=== PATIENT | male | born 1990 | race Asian ===

== ENCOUNTER 2016-06-20 16:13 | Emergency (ER) | payer BC ==
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
== END 2016-06-20 18:23 | disposition home or self-care (01) ==
LOC: ED 16:13
DX: S86.011A Strain of right Achilles tendon, initial encounter (principal); W51.XXXA Accidental striking against or bumped into by another person, initial encounter; Y92.9 Unspecified place or not applicable

== ENCOUNTER 2016-06-30 14:42 | Day surgery (SDC) | payer BC ==
[~2016-06-30 14:42] MED LIST: CEFAZOLIN SODIUM 2 GRAM DUPLEX 50 ML IV PRN
[2016-06-30] MEDS ORDERED: IV START KIT ONE (14:45)
[2016-06-30] MEDS ORDERED: LACTATED RINGERS 1,000 ML ONE (14:45)
[2016-06-30] MEDS ORDERED: CEFAZOLIN SODIUM 2 GRAM PREMIX 100 ML IV ONE (14:46)
[2016-06-30] MEDS ORDERED: NERVE BLOCK PROCEDURAL TRAY 1 EACH ONE (15:26)
[2016-06-30] MEDS ORDERED: ROPIVACAINE 0.5% 30 ML VIAL ONE (15:26)
[2016-06-30] MEDS ORDERED: MIDAZOLAM HCL 5 MG/5 ML VIAL ONE (15:32)
[2016-06-30] MEDS ORDERED: FENTANYL 100 MCG/2 ML VIAL ONE (15:32)
--- NOTE | 2016-06-30 15:57 | HP ---
DATE OF CLINIC: 06/28/16 CLOVIS LOCKE : 1990 PLANNED PROCEDURE: Right Achilles Tendon Repair DATE OF SURGERY: June 30, 2016 SURGEON: Magnus Flores M.D. HISTORY OF PRESENT ILLNESS Clovis Locke is a 26 year old male. * Medication list reviewed with patient allergy list reviewed with patient. * Tried NSAIDS * Has not tried Physical Therapy * Has not tried Injections The patient is a 26 yr old male who sustained a right ankle achilles tear on 06.20.2016. The patient has had an MRI of the right ankle and would like to review with me his options. He lives in [place] where he works but his family is here in the [place] area. His mother is an ICU nurse at [employer]. He has some pain but is more concerned about his function in the future. He would like to discuss the pros and cons of non-op and surgical treatment for his right achilles rupture. The patient is planning on having surgery on Tue in [place]. The patient is in a walking boot with a heel raise. PMH: L5-S1 disectomy CURRENT MEDICATION * Ibuprofen 400 MG Tablet as directed 0 days, 0 refills * tylenol unk Tablet as directed 0 days, 0 refills PAST MEDICAL/SURGICAL HISTORY Reported: Medical: No reported medical history or no significant history. Surgical: * Orthopedic surgery lumbar surgery SOCIAL HISTORY Behavioral: Daily coffee consumption seldom, mayby once a month. No tobacco use. Alcohol: Alcohol use socially. Drug Use: Not using drugs. ALLERGIES * Fish Shellfish FAMILY HISTORY Hypertension REVIEW OF SYSTEMS Systemic: No fever and no recent weight change. Cardiovascular: No chest pain or discomfort and no palpitations. Pulmonary: No cough and no wheezing. Gastrointestinal: No nausea, no vomiting, no abdominal pain, and no diarrhea. Hematologic: No easy bleeding (no blood clots). Neurological: No motor disturbances and no sensory disturbances. Skin: No skin lesions and no rash. PHYSICAL FINDINGS * Vitals taken 06/28/2016 01:48 pm BP-Sitting R 128/78 mmHg 100 - 120/60 - 80 BP Cuff Size Regular Pulse Rate-Sitting 89 bpm 50 - 100 Pulse Rhythm Regular Temp-Oral 97.8 F 96 - 101 Height 67 in 65 - 75 Pain Level 4 General Appearance: * Well developed. * In no acute distress. Eyes: General/bilateral: Extraocular Movements: * Normal. Lungs: * Clear to auscultation. * No wheezing was heard. * No rales/crackles were heard. Cardiovascular: Heart Rate And Rhythm: * Heart rate was normal. * Heart rhythm regular. Abdomen: Palpation: * Abdominal non-tender. Neurological: * Oriented to time, place, and person. Motor: * Dominant Hand = Right Hand. PHYSICAL FINDINGS RIGHT EXTREMITY Ankle/Foot General Appearance: The patient has some mild swelling and dependent bruising of the right ankle and a gross defect posteriorly in his right achilles tendon. The patient has good peroneal strength. The patient has a POSITIVE Sandoval's test (knee flexed and patient is prone and squeezing the calf does not produce plantarflexion) Neurologic: Gross sensation to light touch was present in the distribution of DP/SP/MP/LP/saph/sural nerves Vascular: 1+ DP pulse, capillary refill less then 2 seconds is present Motor: 5 out of 5 strength quad, EHL, TA, GA, peroneals, normal toe flexion toe extension Range of Motion: AROM: Plantarflexion to dorsiflexion: 5 degrees to 0 degrees PROM: Eversion to inversion: 10 degrees to 10 degrees PHYSICAL FINDINGS LEFT EXTREMITY Ankle/Foot General Appearance: The patient has no swelling and no abnormalities. The patient has a Negative Sandoval's test (knee flexed and patient is prone and squeezing the calf does produce plantarflexion) Neurologic: Gross sensation to light touch was present in the distribution of DP/SP/MP/LP/saph/sural nerves Vascular: 1+ DP pulse, capillary refill less then 2 seconds is present Motor: 5 out of 5 strength quad, EHL, TA, GA, peroneals, normal toe flexion toe extension Range of Motion: AROM: Plantarflexion to dorsiflexion: 20 degrees to 5 degrees PROM: Eversion to inversion: 10 degrees to 10 degrees PREVIOUS TESTS * Test: CBC WITH DIFF Report Date: 06/24/2016 WBC 5.6 10*3/mL MCV 90.7 fL BASOPHIL 0.5 % RBC 5.05 10*6/uL NEUTROPHILS 48.8 % MCH 29.9 pg MCHC 33.0 g/dL RDW 12.0 % PLATELET COUNT 344 10*3/mL IMM NEUT % 0.4 % IMM NEUT # 0.0 10*3/mL MONOCYTES 7.5 % EOSINOPHIL 1.8 % HCT 45.8 % HGB 15.1 g/L LYMPHOCYTE 41.0 % ANC 2.7 10*3/mL * Test: BASIC METABOLIC PROFILE Report Date: 06/24/2016 BUN 16 mg/dL BUN/CREAT RATIO 20 CALCIUM 9.6 mg/dL GLUCOSE 87 mg/dL CREATININE 0.8 mg/dL SODIUM 140 meq/L POTASSIUM 4.4 meq/L CHLORIDE 102 meq/L CARBON DIOXIDE 31 meq/L ANION GAP 11 meq/L GFR 117 High IMAGING 06.20.2016--right ankle xrays are negative for any fracture, dislocation or any bony abnormalities. 06.21.2016--right ankle MRI shows a full thickness achilles tendon tear. There are some anterior fibers but over 95% of the tendon is torn. I reviewed the MRI with Dr. Ryan and do not appreciate a P. brevis tear. ASSESSMENT Magnus Flores MD made the following assessments * Rupture of the Achilles tendon -right PLAN * OTHER OxyCODONE HCl 5 MG TABS, as directed: one to two tabs by mouth every 4-6 hours as needed for pain, 7 days, 0 refills Keflex 500 MG CAPS, as directed: one tab by mouth every 8 hours until completed after surgery, 2 days, 0 refills THERAPY * Patient not eligible for fall risk assessment. SURGICAL CONSENT We have discussed surgical options including right achilles tendon repair vs nonoperative management. I spoke to the patient about my thoughts. Based on his clinical exam and MRI findings, I do not think his P. brevis needs a repair. We reviewed risks associated with the surgery including wound problems, infection, ankle stiffness, anesthesia risks, injury to surrounding nerves and blood vessels, blood clots as well as other possible problems. I emphasized to the patient that surgery may reduce his retear rate but his infection rate is higher than non-op treatment. He understands this and would like to proceed with surgery. He signed the consent form and then we discussed the post-op rehab plan. The patient was counseled in detail regarding the diagnosis, treatment options available, prognosis of each treatment option and the potential risks and complications. The risks of surgery include, but are not limited to, anesthetic , neurovascular complications, pulmonary embolism, deep vein thrombosis, wound dehiscence, failure of any or all of the discussed procedures, infection of the joint or surrounding soft tissue, need for revision surgery, chronic pain, limitations in activities of daily living, inability to return to work, and loss of normal range of motion or functional use of the extremity. There is the possibility of failure over time that may require additional operative or nonoperative treatment. The patient acknowledged that there are a number of perioperative risks not mentioned here and would still like to proceed. The patient is aware of and understands these risks, and wishes to proceed with the proposed surgical procedure and other procedures as indicated at the time of surgery. The preoperative instructions were reviewed with the patient and all questions were answered. KERRYP/zoila
[2016-06-30] MEDS ORDERED: MEPERIDINE 25 MG/ML SYRINGE IV PRN (17:13)
[2016-06-30] MEDS ORDERED: PROMETHAZINE HCL 25 MG/ML VIAL IM PRN (17:13)
[2016-06-30] MEDS ORDERED: ONDANSETRON 4 MG/2ML 2 ML VIAL IV PRN ×2 (17:13→22:30)
[2016-06-30] MEDS ORDERED: MORPHINE SULFATE 4 MG/ML SYRINGE IV PRN ×2 (17:13→19:47)
[2016-06-30] MEDS ORDERED: HYDRALAZINE HCL 20 MG/1 ML VIAL IV PRN (17:13)
[2016-06-30] MEDS ORDERED: ATROPINE SULFATE 0.4 MG/1 ML VIAL IV PRN (17:13)
[2016-06-30] MEDS ORDERED: NALOXONE HCL 0.4 MG/ML VIAL IV PRN (17:13)
[2016-06-30] MEDS ORDERED: LACTATED RINGERS 1,000 ML IV SCH (17:15)
[2016-06-30] MEDS ORDERED: MEPERIDINE 25 MG/ML SYRINGE ONE ×2 (18:32)
[2016-06-30] MEDS ORDERED: ROCURONIUM BROMIDE 10 MG/ML DOSE IV ONE (18:56)
[2016-06-30] MEDS ORDERED: ONDANSETRON 4 MG/2ML 2 ML VIAL ONE (18:56)
[2016-06-30] MEDS ORDERED: PROPOFOL 20 ML IV ONE (18:56)
[2016-06-30] MEDS ORDERED: METOCLOPRAMIDE HCL 5 MG/ML 2ML VIAL ONE (18:56)
[2016-06-30] MEDS ORDERED: KETOROLAC TROMETHAMINE 30 MG/ML 1 ML VIAL ONE (18:56)
--- NOTE | 2016-06-30 19:02 | PCMBPN ---
Brief Post Op Note: Date of Procedure: 06/30/16 Preoperative Diagnosis: 1. right achilles tendon tear Postoperative Diagnosis: 1. [Same] Procedure: right achilles tendon tear repair Surgeon: Magnus Flores MD Assist: Walker VENEER MEASURER Anesthesia: GETA, right popliteal nerve block Findings: as expected, pt had a completed achilles tendon tear which was repaired with a #5 ethibond, #2 ethibond, and a running 0 vicryl Condition: extubated, stable vitals, transferred to pacu Complications: None IV Fluids: 1600 mLs of LR Urine Output: 0 mLs Estimated Blood Loss: 15 mLs Tourniquet Time: [N/A] Specimens: [N/A] Implants: None Drains: [N/A] PLAN: NWB on the RLE. Keflex x 24 hours post-op. Oxycodone for pain control. ASA for DVT prophylaxis.
[2016-06-30] MEDS ORDERED: MORPHINE SULFATE 4 MG/ML SYRINGE ONE (19:20)
[2016-06-30] MEDS ORDERED: MORPHINE SULFATE 2 MG/ML SYRINGE IV PRN (19:31)
[2016-06-30] MEDS ORDERED: DIPHENHYDRAMINE HCL 50 MG/1 ML VIAL IV PRN (19:31)
[2016-06-30] MEDS ORDERED: ACETAMINOPHEN 325 MG TABLET PO PRN (19:31)
[2016-06-30] MEDS ORDERED: MORPHINE SULFATE 10 MG/ML SYRINGE IV PRN (19:47)
[2016-06-30 20:02] VITALS: BMI 25.6
[2016-06-30] MEDS: OXYCODONE HCL 5 MG TABLET PO PRN ×2 (20:16→21:08)
[2016-06-30 21:35] VITALS: BP 142/89
--- NOTE | 2016-07-01 11:49 | OP ---
NATE SERRATO : 1990 V [id number] DATE OF PROCEDURE: June 30, 2016 PREOPERATIVE DIAGNOSIS: Right Achilles tendon tear. POSTOPERATIVE DIAGNOSIS: Right Achilles tendon tear. PROCEDURE: Right Achilles tendon tear repair. SURGEON: Magnus Flores M.D. TELECOM SALES CONSULTANT: Hudson CHAVEZ ANESTHESIA: General along with right popliteal nerve block, single shot for postop pain control. FINDINGS: As expected, the patient had a complete rupture of his Achilles tendon. This was repaired with a #5 Ethibond and #2 FiberWire x2 and a running 0 Vicryl circumferential suture. CONDITION: The patient was extubated with stable vital signs and transferred to the PACU. COMPLICATIONS: None IV FLUIDS: 1600 cc of LR URINE OUTPUT: 0 EBL: 15 cc TOURNIQUET TIME: Was not elevated for the case SPECIMENS: N/A IMPLANTS: None DRAINS: N/A PLAN: The patient will be nonweightbearing on the right lower extremity. His foot is splinted in a plantar flexed position, Keflex for 24 hours postop, oxycodone for pain control and aspirin for DVT prophylaxis. INDICATIONS: The patient is a 26-year-old male who had a complete rupture of his right Achilles. This was diagnosed by the [facility] and confirmed by MRI and my clinical exam. He and I discussed the risks and benefits of nonoperative and surgical treatment. We discussed the increased risk of infection with surgery however, the possibility of a lower rupture rate with surgery. I reviewed the risks and benefits with him of serial casting and nonoperative treatment vs. operative repair and the patient opted for surgery. I thought this was an appropriate decision however we did talk about other unusual complications such as anesthesia risks and DVT. PROCEDURE DESCRIPTION: The patient is a 26-year-old male with a right full thickness Achilles rupture. This was confirmed by clinical exam and MRI. In the preoperative area I confirmed that the right side was the correct side and I signed his right leg with my initials and the word "yes". I updated the H&P and confirmed that nothing had changed and tried to answer all of his questions. I made sure that the consent matched our proposed procedure. The patient was then seen by the anesthesia team. The anesthesia team offered him a popliteal nerve block to help with postop pain relief. He accepted this and under sterile conditions this was performed without difficulty or complication. The patient as then taken from the preoperative area to the OR theater where he was intubated on a standard OR bed. The tourniquet was placed on his right leg and it was set at 250mm of mercury. It would not be elevated for the case. An SCD was placed on his left foot for mechanical DVT prophylaxis. At this point in time the patient was flipped to a prone position with bony prominences well padded on his knees and shoulders. I looked at the nonoperative extremity so that I could evaluate the tension of the Achilles to be set in the surgery. With this performed I was ready to do the prep. The right lower extremity was prepped with a chlorhexidine scrub and then prep. Coban was used to cover the foot and calcaneus exposing the posterior aspect of the Achilles. I then vivian a 6-8cm incision on the medial border of the posterior Achilles. This was centered over the palpable defect. At this point I performed a final timeout confirming that the right side was the correct side, that everyone in the room considered that our planned procedure was a right Achilles repair and Ancef, 2 grams, had been given approximately 25 minutes before this time out. Once we were ready to begin I elected not to put up the tourniquet. A #15 blade was now used to make an incision on the medial border of the posterior medial Achilles tendon. The incision was approximately 6-8cm in length. Using a no-touch technique, the subcutaneous tissue was carefully dissected exposing the perotenon with tenotomy scissors. Once the perotenon was dissected a deep knife was used to incise the perotenon it from the underlying Achilles tendon. The perotenon was freed medially, laterally and posteriorly on each sides of the tendon. Care was taken throughout the dissection to avoid the sural nerve on the lateral aspect of the Achilles. With the tendon visualized, there were a number of strands with approximately 1.5 inches of diastasis. These ends were freshened up and the #5 FiberWire was used with a modified Avila suture placed across the 2 ends of the ruptured tendon. This helped me place tension that matched the 2 opposite ends. This was done with the knee flexed and the foot at approximately 10 degrees of plantarflexion matching the tension from the opposite side. I then used anterior and posterior modified Avila sutures that were placed with #2 FiberWire and a circumferential 0 Vicryl around the 2 ends of the frayed sutures bringing the Achilles tendon together. At this point I moved the Achilles up and down. I was happy with his excursion. I then attempted to close the proximal and distal ends of the perotenon. Because the tendon was more bulbous the center area was difficult to close however, I did get good re-approximation of the tendon and coverage with the perotenon. At this point the incision was irrigated and good hemostasis was confirmed and I did a complex closure of the incision first with 0 Vicryl followed by 2-0 Vicryl followed by 3-0 vertical mattress sutures. The patient's posteromedial incision was covered with Xeroform, 4x4's, ABD and an anterior-posterior splint in approximately 20 degrees of plantarflexion to relax the incision. The patient was then flipped to a supine position without difficulty and extubated without difficulty or complication. The patient had good postop pain control secondary to the nerve block. The patient will be discharged home. He will be nonweightbearing on this side with plans to f/u with me in one week for a wound check and approximately 6 weeks of nonweightbearing as we adjust the position of his foot. I attempted to answer all their questions today. [place]/zoila CC: [facility]
== END 2016-06-30 21:45 | disposition home or self-care (01) ==
LOC: SDC 14:42 → MS 19:51 → SDC 21:45
PROVIDERS: ATTEND Orthopaedic Surgery
DX: S86.011A Strain of right Achilles tendon, initial encounter (principal)